=== PATIENT | female | born 1990 | race Caucasian/White ===

== ENCOUNTER 2017-10-18 03:01 | Observation (INO) | payer OTHER ==
[2017-10-18] MEDS: SOD CHLORIDE 0.9% 500 ML IV (04:04)
[2017-10-18 04:22] LABS: ADD MAN DIFF? NO
[2017-10-18 04:27] LABS: ABNORMAL IP MESSAGE 1; BASOPHIL # 0.1 10^3/ul (0.0-0.1); BASOPHILS % 0.8 % (0.0-2.0); EOSINOPHILS # 0.1 10^3/ul (0.0-0.5); EOSINOPHILS % 1.3 % (0.0-7.0); HEMATOCRIT 36.4 % (37.0-47.0); HEMOGLOBIN 10.8 g/dl (12.0-16.0); LYMPHOCYTES # 1.7 10^3/ul (0.8-2.9); LYMPHOCYTES % 19.5 % (15.0-51.0); MEAN CORPUSCULAR HGB CONC 29.7 g/dl (32.0-37.0); MEAN PLATELET VOLUME 10.8 fl (7.4-10.4); MONOCYTE # 0.4 10^3/ul (0.3-0.9); MONOCYTES % 4.6 % (0.0-11.0); NEUTROPHIL # 6.5 10^3/ul (1.6-7.5); NEUTROPHILS % 73.5 % (39.0-77.0); PLATELET COUNT 258 10^3/UL (140-415); RED BLOOD COUNT 4.92 10^6/ul (4.20-5.40); RED CELL DISTRIBUTION WIDTH 22.6 % (11.5-14.5)
[2017-10-18 04:27] LABS: WHITE BLOOD COUNT 8.9 10^3/ul (4.8-10.8)
[2017-10-18] MEDS: KETOROLAC 30 MG INJ INJ (04:42)
[2017-10-18 04:45] LABS: INR 0.99; PROTIME 13.2 Sec (11.9-14.9)
[2017-10-18 04:46] LABS: PARTIAL THROMBOPLASTIN TIME 36.2 Sec (25.0-35.0)
[2017-10-18 04:49] LABS: ALANINE AMINOTRANSFERASE 20 IU/L (13-69); ALBUMIN 4.4 g/dl (3.3-4.9); ALBUMIN/GLOBULIN RATIO 1.18; ALKALINE PHOSPHATASE 89 IU/L (42-121); ANION GAP 14 (8-16); ASPARTATE AMINO TRANSFERASE 15 IU/L (15-46); BILIRUBIN,INDIRECT 0.2 mg/dl (0-1.1); BILIRUBIN,TOTAL 0.2 mg/dl (0.2-1.3); BLOOD UREA NITROGEN 17 mg/dl (7-20); CALCIUM 8.3 mg/dl (8.4-10.2); CARBON DIOXIDE 30 mmol/L (21-31); CHLORIDE 100 mmol/L (97-110); GLUCOSE 89 mg/dl (70-220); POTASSIUM 3.8 mmol/L (3.5-5.1); SODIUM 140 mmol/L (135-144); TOTAL PROTEIN 8.1 g/dl (6.1-8.1)
[2017-10-18 04:59] LABS: B-TYPE NATRIURETIC PEPTIDE 40 PG/ML (0-125)
[2017-10-18 05:02] LABS: TROPONIN-I < 0.012 ng/ml (0.00-0.12)
[2017-10-18] MEDS: LEVOFLOXACIN 500MG/D5W (PMX) 100 ML IVPB (05:28)
[2017-10-18 05:32] LABS: POSITIVE DIFF @See below
[2017-10-18] MEDS ORDERED: ACETAMINOPHEN 325 MG TAB PO (07:00)
[2017-10-18] MEDS ORDERED: NACL 0.9% 3 ML SYG IV (07:00)
[2017-10-18] MEDS ORDERED: ONDANSETRON 4 MG INJ IV (07:00)
[2017-10-18] MEDS: IPRATROPIUM (NEB) 0.5 MG/2.5 ML AMP INH (07:10)
[2017-10-18] MEDS: ALBUTEROL 0.083% (NEB) 2.5 MG/3 ML AMP HHN (07:10)
[2017-10-18] MEDS ORDERED: VANCOMYCIN IV PER PHARMACY XX (08:00)
[2017-10-18] MEDS: ONDANSETRON 4 MG INJ IV (09:40)
[2017-10-18] MEDS: morphine 4 MG/ML VIAL IV (09:41)
[2017-10-18] MEDS: morphine 2 MG INJ IV ×2 (09:41→18:33)
[2017-10-18] MEDS ORDERED: VANCOMYCIN 2 GM in DEXTROSE 5% 500 ML IVPB (10:00)
[2017-10-18 10:22] LABS: IRON 47 ug/dl (35-150)
[2017-10-18 10:33] LABS: % IRON SATURATION 14 % SAT (22-52); TOTAL IRON BINDING CAPACITY 348 ug/dl (241-421)
[2017-10-18 10:46] LABS: CREATINE KINASE 109 IU/L (23-200)
[2017-10-18 10:58] LABS: CK INDEX 1.3; CK-MB 1.38 ng/ml (0.0-2.4)
[2017-10-18 10:59] LABS: TROPONIN-I < 0.012 ng/ml (0.00-0.12)
[2017-10-18 11:25] LABS: FREE T4 (FREE THYROXINE) 0.08 ng/dl (0.79-2.35)
[2017-10-18 11:43] LABS: FERRITIN 23.1 ng/ml (6.2-137.0)
[2017-10-18] MEDS: LEVOFLOXACIN 750MG/D5W (PMX) 150 ML IVPB (11:52)
[2017-10-18] MEDS: LIOTHYRONINE 5 MCG TAB PO ×2 (15:16→20:03)
[2017-10-18] MEDS: SOD CHLORIDE 0.9% 100 ML (15:49)
[2017-10-18] MEDS: IOHEXOL 300MG/ML 150 ML BTL (15:49)
[2017-10-18] MEDS: NITROGLYCERIN (SL) 0.4 MG TAB SL ×2 (21:08→21:15)
[2017-10-18] MEDS ORDERED: VANCOMYCIN 1.5 GM in DEXTROSE 5% 500 ML IVPB (22:00)
[2017-10-18] MEDS: ALBUTEROL/IPRATROPIUM (NEB) 3 ML AMP HHN (22:01)
[2017-10-18] MEDS: KETOROLAC 30 MG INJ IV (22:20)
[2017-10-19] MEDS: LEVOTHYROXINE 150 MCG TAB PO (05:39)
[2017-10-19 05:50] LABS: ADD MAN DIFF? NO
[2017-10-19 05:59] LABS: WHITE BLOOD COUNT 8.3 10^3/ul (4.8-10.8)
[2017-10-19 05:59] LABS: ABNORMAL IP MESSAGE 1; BASOPHIL # 0.1 10^3/ul (0.0-0.1); BASOPHILS % 0.6 % (0.0-2.0); EOSINOPHILS # 0.1 10^3/ul (0.0-0.5); EOSINOPHILS % 1.6 % (0.0-7.0); HEMOGLOBIN 10.3 g/dl (12.0-16.0); LYMPHOCYTES # 1.3 10^3/ul (0.8-2.9); LYMPHOCYTES % 16.1 % (15.0-51.0); MEAN CORPUSCULAR HEMOGLOBIN 22.6 pg (29.0-33.0); MEAN CORPUSCULAR HGB CONC 29.4 g/dl (32.0-37.0); MEAN CORPUSCULAR VOLUME 76.9 fl (82.0-101.0); MEAN PLATELET VOLUME 11.3 fl (7.4-10.4); MONOCYTE # 0.5 10^3/ul (0.3-0.9); MONOCYTES % 5.4 % (0.0-11.0); NEUTROPHIL # 6.3 10^3/ul (1.6-7.5); NEUTROPHILS % 75.7 % (39.0-77.0); PLATELET COUNT 251 10^3/UL (140-415); RED BLOOD COUNT 4.55 10^6/ul (4.20-5.40); RED CELL DISTRIBUTION WIDTH 22.3 % (11.5-14.5)
[2017-10-19 06:06] LABS: POSITIVE DIFF @See below
[2017-10-19 06:54] LABS: ALANINE AMINOTRANSFERASE 27 IU/L (13-69); ALBUMIN 3.9 g/dl (3.3-4.9); ALBUMIN/GLOBULIN RATIO 1.02; ALKALINE PHOSPHATASE 75 IU/L (42-121); ANION GAP 15 (8-16); ASPARTATE AMINO TRANSFERASE 15 IU/L (15-46); BILIRUBIN,INDIRECT 0.1 mg/dl (0-1.1); BILIRUBIN,TOTAL 0.1 mg/dl (0.2-1.3); BLOOD UREA NITROGEN 17 mg/dl (7-20); CARBON DIOXIDE 31 mmol/L (21-31); CHLORIDE 101 mmol/L (97-110); CREATININE 0.93 mg/dl (0.44-1.00); GLUCOSE 102 mg/dl (70-220); MAGNESIUM 2.1 mg/dl (1.7-2.5); POTASSIUM 4.6 mmol/L (3.5-5.1); SODIUM 142 mmol/L (135-144); TOTAL PROTEIN 7.7 g/dl (6.1-8.1)
[2017-10-19 06:58] LABS: HEMOGLOBIN A1C 5.2 % (0-5.9)
[2017-10-19 07:01] LABS: PHOSPHORUS 5.6 mg/dl (2.5-4.9)
[2017-10-19] MEDS: LEVOFLOXACIN 750MG/D5W (PMX) 150 ML IVPB (08:24)
[2017-10-19] MEDS: LIOTHYRONINE 5 MCG TAB PO ×2 (08:24→20:08)
[2017-10-19] MEDS: FUROSEMIDE 20 MG INJ IV (14:33)
[2017-10-19] MEDS: KETOROLAC 30 MG INJ IV (19:44)
[2017-10-20] MEDS: LEVOTHYROXINE 150 MCG TAB PO (05:32)
[2017-10-20 05:46] LABS: ADD MAN DIFF? NO
[2017-10-20 05:55] LABS: WHITE BLOOD COUNT 7.9 10^3/ul (4.8-10.8)
[2017-10-20 05:55] LABS: ABNORMAL IP MESSAGE 1; BASOPHILS % 0.5 % (0.0-2.0); EOSINOPHILS # 0.1 10^3/ul (0.0-0.5); EOSINOPHILS % 1.8 % (0.0-7.0); HEMATOCRIT 33.5 % (37.0-47.0); HEMOGLOBIN 10.2 g/dl (12.0-16.0); LYMPHOCYTES # 1.8 10^3/ul (0.8-2.9); LYMPHOCYTES % 22.6 % (15.0-51.0); MEAN CORPUSCULAR HEMOGLOBIN 22.4 pg (29.0-33.0); MEAN CORPUSCULAR HGB CONC 30.4 g/dl (32.0-37.0); MEAN CORPUSCULAR VOLUME 73.6 fl (82.0-101.0); MEAN PLATELET VOLUME 11.4 fl (7.4-10.4); MONOCYTE # 0.4 10^3/ul (0.3-0.9); MONOCYTES % 4.8 % (0.0-11.0); NEUTROPHIL # 5.5 10^3/ul (1.6-7.5); PLATELET COUNT 258 10^3/UL (140-415); RED BLOOD COUNT 4.55 10^6/ul (4.20-5.40); RED CELL DISTRIBUTION WIDTH 22.5 % (11.5-14.5)
[2017-10-20 06:23] LABS: POSITIVE DIFF @See below
[2017-10-20 06:25] LABS: CHOLESTEROL 156 mg/dl (100-200); HDL CHOLESTEROL 51 mg/dl (34-82); LDL CHOLESTEROL,CALCULATED 92 mg/dl; MAGNESIUM 1.9 mg/dl (1.7-2.5); TRIGLYCERIDES 64 mg/dl (0-149)
[2017-10-20 06:30] LABS: ANION GAP 11 (8-16); BLOOD UREA NITROGEN 19 mg/dl (7-20); CALCIUM 7.6 mg/dl (8.4-10.2); CARBON DIOXIDE 30 mmol/L (21-31); CHLORIDE 101 mmol/L (97-110); CREATININE 0.84 mg/dl (0.44-1.00); GLUCOSE 90 mg/dl (70-220); POTASSIUM 3.6 mmol/L (3.5-5.1); SODIUM 138 mmol/L (135-144)
[2017-10-20] MEDS: LEVOFLOXACIN 750MG/D5W (PMX) 150 ML IVPB (08:15)
[2017-10-20] MEDS: FUROSEMIDE 20 MG INJ IV (08:15)
[2017-10-20] MEDS: LIOTHYRONINE 5 MCG TAB PO (08:15)
== END 2017-10-20 11:30 | disposition home or self-care (01) ==
LOC: E/R 03:01 → MS3 05:49
DX: J90 Pleural effusion, not elsewhere classified (principal); J96.21 Acute and chronic respiratory failure with hypoxia; D50.9 Iron deficiency anemia, unspecified; E03.9 Hypothyroidism, unspecified; E66.01 Morbid (severe) obesity due to excess calories; Z68.42 Body mass index [BMI] 45.0-49.9, adult; S22.42XA Multiple fractures of ribs, left side, initial encounter for closed fracture; S27.9XXA Injury of unspecified intrathoracic organ, initial encounter; Z88.1 Allergy status to other antibiotic agents; Z88.0 Allergy status to penicillin; X58.XXXA Exposure to other specified factors, initial encounter; Y93.9 Activity, unspecified; Y92.9 Unspecified place or not applicable; Y99.9 Unspecified external cause status
CPT/HCPCS: 36415; 71045; 71260; 80048; 80053; 80061; 82550; 82553; 82728; 83036; 83540; 83735; 83880; 84100; 84439; 84443; 84484; 84702; 84703; 85025; 85610; 85730; 87040; 87400; 93005; 93306; 94664; 96374; 96375; 99285-25; G0378; J1940

== ENCOUNTER 2018-08-10 20:09 | Emergency (ER) | payer OTHER ==
[2018-08-10] MEDS: ONDANSETRON 4 MG INJ IV (21:08)
[2018-08-10] MEDS: ALPRAZOLAM 1 MG TAB PO (21:08)
[2018-08-10] MEDS: SOD CHLORIDE 0.9% 1,000 ML IV (21:08)
[2018-08-10 21:24] LABS: ADD MAN DIFF? NO
[2018-08-10 21:27] LABS: WHITE BLOOD COUNT 6.7 10^3/ul (4.8-10.8)
[2018-08-10 21:27] LABS: BASOPHILS % 0.3 % (0.0-2.0); EOSINOPHILS # 0.1 10^3/ul (0.0-0.5); EOSINOPHILS % 0.7 % (0.0-7.0); HEMATOCRIT 34.2 % (37.0-47.0); LYMPHOCYTES # 1.4 10^3/ul (0.8-2.9); LYMPHOCYTES % 20.9 % (15.0-51.0); MEAN CORPUSCULAR HEMOGLOBIN 27.1 pg (29.0-33.0); MEAN CORPUSCULAR HGB CONC 32.2 g/dl (32.0-37.0); MEAN CORPUSCULAR VOLUME 84.2 fl (82.0-101.0); MEAN PLATELET VOLUME 11.1 fl (7.4-10.4); MONOCYTE # 0.4 10^3/ul (0.3-0.9); MONOCYTES % 5.2 % (0.0-11.0); NEUTROPHIL # 4.9 10^3/ul (1.6-7.5); NEUTROPHILS % 72.6 % (39.0-77.0); PLATELET COUNT 234 10^3/UL (140-415); RED BLOOD COUNT 4.06 10^6/ul (4.20-5.40); RED CELL DISTRIBUTION WIDTH 16.1 % (11.5-14.5)
[2018-08-10 21:46] LABS: ALANINE AMINOTRANSFERASE 20 IU/L (13-69); ALBUMIN 4.4 g/dl (3.3-4.9); ALBUMIN/GLOBULIN RATIO 1.15; ALKALINE PHOSPHATASE 71 IU/L (42-121); ANION GAP 16 (5-13); ASPARTATE AMINO TRANSFERASE 17 IU/L (15-46); BILIRUBIN,INDIRECT 0.7 mg/dl (0-1.1); BILIRUBIN,TOTAL 0.7 mg/dl (0.2-1.3); BLOOD UREA NITROGEN 9 mg/dl (7-20); CALCIUM 8.8 mg/dl (8.4-10.2); CARBON DIOXIDE 27 mmol/L (21-31); CHLORIDE 100 mmol/L (97-110); CREATININE 0.48 mg/dl (0.44-1.00); Estimated GFR > 60 mL/min (>60); GLUCOSE 80 mg/dl (70-220); LIPASE 46 U/L (23-300); POTASSIUM 3.1 mmol/L (3.5-5.1); SODIUM 143 mmol/L (135-144); TOTAL PROTEIN 8.2 g/dl (6.1-8.1)
[2018-08-10 21:56] LABS: TROPONIN-I < 0.012 ng/ml (0.000-0.120)
[2018-08-10] MEDS: POTASSIUM CHLORIDE (SR) 20 MEQ TAB PO (22:18)
== END 2018-08-10 23:43 | disposition home or self-care (01) ==
LOC: E/R 23:43
DX: R55 Syncope and collapse (principal); F41.9 Anxiety disorder, unspecified; E87.6 Hypokalemia; E03.9 Hypothyroidism, unspecified
CPT/HCPCS: 36415; 80053; 83690; 84484; 85025; 93005; 96374; 99284-25

== ENCOUNTER 2019-04-03 02:13 | Emergency (ER) | payer OTHER ==
[2019-04-03 03:20] LABS: WHITE BLOOD COUNT 6.6 10^3/ul (4.8-10.8)
[2019-04-03 03:20] LABS: ADD MAN DIFF? NO; BASOPHIL # 0.1 10^3/ul (0.0-0.1); BASOPHILS % 0.8 % (0.0-2.0); EOSINOPHILS # 0.1 10^3/ul (0.0-0.5); EOSINOPHILS % 1.4 % (0.0-7.0); HEMATOCRIT 39.2 % (37.0-47.0); HEMOGLOBIN 12.7 g/dl (12.0-16.0); LYMPHOCYTES # 2.1 10^3/ul (0.8-2.9); LYMPHOCYTES % 31.9 % (15.0-51.0); MEAN CORPUSCULAR HEMOGLOBIN 29.2 pg (29.0-33.0); MEAN CORPUSCULAR HGB CONC 32.4 g/dl (32.0-37.0); MEAN CORPUSCULAR VOLUME 90.1 fl (82.0-101.0); MEAN PLATELET VOLUME 11.5 fl (7.4-10.4); MONOCYTE # 0.3 10^3/ul (0.3-0.9); MONOCYTES % 4.9 % (0.0-11.0); NEUTROPHILS % 60.8 % (39.0-77.0); PLATELET COUNT 215 10^3/UL (140-415); RED BLOOD COUNT 4.35 10^6/ul (4.20-5.40); RED CELL DISTRIBUTION WIDTH 14.1 % (11.5-14.5)
[2019-04-03] MEDS: METOCLOPRAMIDE 10 MG INJ IV (03:22)
[2019-04-03] MEDS: HYDROmorphONE 1 MG/ML SYG IV (03:22)
[2019-04-03] MEDS: DIPHENHYDRAMINE 50 MG INJ IV (03:22)
[2019-04-03] MEDS: SOD CHLORIDE 0.9% 1,000 ML IV ×2 (03:23→04:59)
[2019-04-03 03:39] LABS: ANION GAP 10 (5-13); BLOOD UREA NITROGEN 18 mg/dl (7-20); CARBON DIOXIDE 29 mmol/L (21-31); CHLORIDE 101 mmol/L (97-110); CREATININE 0.85 mg/dl (0.44-1.00); Estimated GFR > 60 mL/min (>60); GLUCOSE 75 mg/dl (70-220); POTASSIUM 3.6 mmol/L (3.5-5.1); SODIUM 140 mmol/L (135-144)
[2019-04-03 03:41] LABS: INR 1.12; PROTIME 14.5 Sec (11.9-14.9); PT RATIO 1.1
[2019-04-03 03:42] LABS: PARTIAL THROMBOPLASTIN TIME 38.6 Sec (23.0-35.0)
[2019-04-03 06:27] LABS: TRIIODOTHYRONINE 0.46 ng/ml (0.97-1.69)
[2019-04-03] MEDS ORDERED: ONDANSETRON 4 MG INJ IV (06:30)
[2019-04-03] MEDS ORDERED: ACETAMINOPHEN 325 MG TAB PO (06:30)
[2019-04-03 07:39] LABS: FREE T4 (FREE THYROXINE) < 0.07 ng/dl (0.79-2.35)
[2019-04-05 21:18] LABS: THYROID BINDING GLOBULIN 17.7 mcg/mL (13.5-30.9)
== END 2019-04-03 09:03 | disposition home or self-care (01) ==
LOC: E/R 09:03
DX: I95.2 Hypotension due to drugs (principal); R00.1 Bradycardia, unspecified; E03.9 Hypothyroidism, unspecified
CPT/HCPCS: 70450; 71045; 80048; 84439; 84442; 84443; 84479; 84480; 84481; 84703; 85025; 85610; 85730; 93005; 96361; 96374; 96375; 99285-25